=== PATIENT | male | born 1985 | race Caucasian/White ===

== ENCOUNTER 2021-08-13 15:06 | Emergency (ER) | payer OTHER, SELFPAY ==
[2021-08-13 15:30] VITALS: BP 176/98; RESP 18; TEMP 36.9; O2SAT 97; BMI 29.8
--- NOTE | 2021-08-13 15:43 | DI.RAD.S_ITS ---
PROCEDURE: XR CHEST 1V INDICATIONS: chest pain TECHNIQUE: One view of the chest was acquired. COMPARISON: None. FINDINGS: Surgical changes and devices: None. Lungs and pleura: Lungs are clear. No pleural effusions or pneumothorax. Mediastinum: Mediastinal contours appear normal. Heart size is normal. Bones and chest wall: No suspicious bony lesions. Overlying soft tissues appear unremarkable. IMPRESSION: No acute cardiopulmonary pathology. Dictated by: Martín Elizalde M.D. on 08/13/2021 at 16:21 Approved by: Martín Elizalde M.D. on 08/13/2021 at 16:21
[2021-08-13] MEDS: ASPIRIN 81 MG CHEW TAB 324 MG PO (15:46)
[2021-08-13 16:00] LABS: Add Manual Diff / Slide Review NO; Basophils Absolute Auto 100 /uL (0-100); Basophils Percent Auto 0.9 % (0-2); Eosinophils Absolute Auto 300 /uL (0-450); Eosinophils Percent Auto 5.3 % (2-4); Hematocrit 42.2 % (41-53); Hemoglobin 14.4 g/dL (13.5-17.5); Lymphocytes Absolute Auto 2100 /uL (1100-4500); Mean Corpuscular HGB Conc 34.1 % (30-36); Mean Corpuscular Hemoglobin 26.8 PG (26-34); Mean Corpuscular Volume 78.6 fL (80-100); Monocytes Absolute Auto 500 /uL (0-900); Monocytes Percent Auto 7.7 % (3-14); Neutrophils Absolute Auto 3400 /uL (1500-7000); Neutrophils Percent Auto 53.1 % (50-75); Platelet Count 274 X10^3/uL (150-400); Red Blood Cell Count 5.37 X10^6/uL (4.5-5.9); Red Cell Distribution Width 13.2 % (11.6-14.8); White Blood Cell Count 6.4 X10^3/uL (4.5-11.0)
[2021-08-13 16:03] LABS: INR 1.1 (0.9-1.3); Prothrombin Time 11.7 SECONDS (10.1-12.7)
[2021-08-13 16:06] LABS: Alanine Aminotransferase 74 IU/L (<50); Albumin 4.6 g/dL (3.5-5.0); Albumin Globulin Ratio 1.4 (1.0-2.8); Alkaline Phosphatase 73 U/L (38-126); Aspartate Aminotransferase 57 IU/L (17-59); Bilirubin Total 0.5 mg/dL (0.2-1.3); Blood Urea Nitrogen 13 mg/dL (9-20); Calcium 9.2 mg/dL (8.4-10.2); Carbon Dioxide 25 mmol/L (22-32); Chloride 106 mmol/L (98-107); Creatine Kinase 402 U/L (55-170); Estimated Glomerular Filt Rate > 60 mL/min (>60); Globulin 3.3 g/dL (1.7-4.1); Glucose 111 mg/dL (70-100); HEMOLYSIS < 15 (0-50); Lipase 140 U/L (23-300); PTT Partial Thromboplastin Tim 32 SECONDS (26.4-36.2); Potassium 3.7 mmol/L (3.4-5.1); Sodium 139 mmol/L (137-145); Total Protein 7.9 g/dL (6.3-8.2)
[2021-08-13 16:18] LABS: Troponin I < 0.012 ng/mL (0.01-0.034)
[2021-08-13 16:20] LABS: CKMB % Relative Index 0.5 % (1.5-5.0); Creatine Kinase MB 2.13 ng/mL (<2.37)
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
[2021-08-13] MEDS: PANTOPRAZOLE DR 20 MG TABLET PO (16:55)
[2021-08-13] MEDS: ACETAMINOPHEN 325 MG TABLET 650 MG PO (16:55)
[2021-08-13] MEDS: HYDROCODONE/ACET 5/325 TABLET 1 TAB PO (16:55)
[2021-08-13] MEDS: methocarbamoL 500 MG TABLET PO (16:55)
== END 2021-08-13 18:12 | disposition home or self-care (01) ==
PROVIDERS: Emergency Medicine; Emergency Provider Nurse Practitioner Critical Care Medicine
DX: R07.82 Intercostal pain (principal); M94.0 Chondrocostal junction syndrome [Tietze]
CPT/HCPCS: 36415; 71045; 80053; 82550; 82553; 83690; 83735; 84484; 85025; 85610; 85730; 93005; 93010; 99284

== ENCOUNTER 2021-10-05 18:44 | Emergency (ER) | payer OTHER, SELFPAY ==
[2021-10-05 18:48] VITALS: BP 183/92; PULSE 91; RESP 22; TEMP 36.9; O2SAT 98
--- NOTE | 2021-10-05 19:35 | ED.BACK ---
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 Patient was doing lifts, with his evaluating his 4, when he felt a pop in his lower back. He immediately dropped the weights, applied ice to the affected area and came to the emergency department. Patient is experienced at conducting lifts and only left manageable weights. He denies any loss of bowel or bladder, extremity numbness or tingling, etc. Patient has not taken anything for the pain. Patient is scheduled to deploy with the [employer] ([place]) in 3 weeks. Related Data Previous Rx's Medication Instructions Recorded hydrocodone 5 mg-acetaminophen 325 1 tab PO BID PRN pain #10 tabs 08/13/21 mg tablet methocarbamol 500 mg tablet 500 mg PO TID PRN muscle spasm #14 08/13/21 tabs cyclobenzaprine 10 mg tablet 10 mg PO TID PRN muscle spasm #14 10/05/21 tabs oxycodone-acetaminophen 7.5 mg-325 1 tab PO Q6H PRN pain #20 tabs 10/05/21 mg tablet Allergies Allergy/AdvReac Type Severity Reaction Status Date / Time No Known Drug Allergies Allergy Verified 08/13/21 15:46 Review of Systems <ALIDA Gill - Last Filed: 10/05/21 20:54> Review of Systems Narrative: Narrative: GENERAL: Denies chills, fatigue, fever, sweats. See HPI HEENT: Denies sinus pain, ear pain, sore throat, difficulty swallowing, dizziness. RESPIRATORY: Denies dyspnea, cough, wheezing, sputum. CARDIOVASCULAR: Denies chest pain, palpitations, edema. GASTROINTESTINAL: Denies nausea, vomiting, abdominal pain, diarrhea, constipation. : Denies dysuria, frequency, incontinence, hematuria, urinary retention, flank pain. MUSCULOSKELETAL: Endorses pain of left lower back. SKIN: Denies rash, skin lesions, or pruritis. NEUROLOGIC: Denies weakness, dizziness, headache, numbness, confusion. PSYCHIATRIC: No concerning psychosocial issues. Patient History <Devante BautistaALIDA - Last Filed: 10/05/21 20:54> alcohol intake frequency: 0-2 drinks per day Substance Use Type: does not use Exam <Devante BautistaALIDA - Last Filed: 10/05/21 20:54> Narrative Exam Narrative: Exam Narrative: GENERAL: This is a well-nourished, well-developed patient, in no acute distress HEAD: Atraumatic. Normocephalic. EYES: Pupils equal round and reactive. Extraocular motions intact. No scleral icterus, injection or drainage. ENT: Nose without bleeding, purulent drainage. Throat without erythema, tonsillar hypertrophy or exudate. Airway patent. NECK: Trachea midline. No JVD or lymphadenopathy. Nontender. CARDIOVASCULAR: Regular rate and rhythm without murmurs, peripheral pulses intact, cap refill <2 sec. RESPIRATORY: Breath sounds equal and clear bilaterally. No wheezes, rales, or rhonchi. No cough. No increased respiratory effort. No accessory muscle use. GASTROINTESTINAL: Abdomen soft, non-tender, nondistended without guarding or rebound. No suprapubic pain. EXTREMITIES: Normal range of motion of extremities, no clubbing or edema. Neurovascularly intact. NEURO: A&O x 3. SKIN: Warm, dry, no rashes or lesions noted. Initial Vital Signs Initial Vital Signs: Vital Signs Temperature 98.5 F 10/05/21 18:48 Pulse Rate 91 H 10/05/21 18:48 Respiratory Rate 22 10/05/21 18:48 Blood Pressure 183/92 H 10/05/21 18:48 Pulse Oximetry 98 10/05/21 18:48 Oxygen Delivery Method 10/05/21 18:48 Reviewed Back/Spine/Pelvis Other: BACK rough planer tender but free of any obvious external abnormalities. There is no asymmetry, swelling, bruising or wound. There is no paraspinal tenderness or CVA tenderness. SI joints nontender. No pain over spinous processes. No symptoms of cauda equina such as saddle anesthesia. Sensation is grossly intact. ROM is limited due to pain. <Devante Oakley DO - Last Filed: 10/05/21 21:11> Initial Vital Signs Initial Vital Signs: Vital Signs Temperature 98.5 F 10/05/21 18:48 Pulse Rate 91 H 10/05/21 18:48 Respiratory Rate 22 07/11/22 18:48 Blood Pressure 183/92 H 10/05/21 18:48 Pulse Oximetry 98 10/05/21 18:48 Oxygen Delivery Method 10/05/21 18:48 Course <ALIDA Gill - Last Filed: 10/05/21 20:54> Orders Ordered: ED Orders 10/05/21 19:47 XR lumbar spine 2-3V Stat Discontinued Medications Ketorolac Tromethamine (Ketorolac 30 Mg/Ml Vial) 30 mg IM NOW ONE Stop: 10/05/21 19:46 Last Admin: 10/05/21 19:54 Dose: 30 mg Documented By: DEBBIE Oxycodone/Acetaminophen (Oxycodone/Acetaminophen 5/325 Tablet) 1 tab PO NOW ONE Stop: 10/05/21 19:46 Last Admin: 10/05/21 19:54 Dose: 1 tab Documented By: JASMINK Vital Signs Vital signs: Vital Signs - 8 hr 10/05/21 18:48 10/05/21 21:04 Temperature 98.5 F Pulse Rate 91 H 89 Respiratory Rate 22 16 Blood Pressure 183/92 H 160/80 H Pulse Oximetry 98 99 Oxygen Delivery Method Room Air Room Air <Devante Oakley DO - Last Filed: 10/05/21 21:11> Orders Ordered: ED Orders 10/05/21 19:47 XR lumbar spine 2-3V Stat Discontinued Medications Ketorolac Tromethamine (Ketorolac 30 Mg/Ml Vial) 30 mg IM NOW ONE Stop: 10/05/21 19:46 Last Admin: 10/05/21 19:54 Dose: 30 mg Documented By: DEBBIE Oxycodone/Acetaminophen (Oxycodone/Acetaminophen 5/325 Tablet) 1 tab PO NOW ONE Stop: 10/05/21 19:46 Last Admin: 10/05/21 19:54 Dose: 1 tab Documented By: JASMINK Vital Signs Vital signs: Vital Signs - 8 hr 10/05/21 18:48 10/05/21 21:04 Temperature 98.5 F Pulse Rate 91 H 89 Respiratory Rate 22 16 Blood Pressure 183/92 H 160/80 H Pulse Oximetry 98 99 Oxygen Delivery Method Room Air Room Air MDM - Back Pain/Injury <ALIDA Gill - Last Filed: 10/05/21 20:54> Differential Diagnosis Differential diagnosis: Likely strain of lumbar region Imaging Data Extremity x-ray #1: Radiologist's Impression: [address] [address] XRay Report Signed Patient: Audi Mclean MR#: [id number] : 1985 Acct:[id number] Age/Sex: 36 / M Date of Service: 10/05/21 Loc: ED Accession Number: [id number] ?? Procedure: XR lumbar spine 2-3V Ordering Provider: Devante Bautista PROCEDURE:? XR LUMBAR SPINE 2-3V ? INDICATIONS:? back pain ? TECHNIQUE:? 3 views of the lumbar spine were acquired.? ? COMPARISON:? None. ? FINDINGS:? ? Bones:? 5 [id number] vertebrae are present.? There is minimal anterolisthesis at L5-S1 measuring approximately 0.2 cm mild facet arthropathy also demonstrated at L5-S1.? No vertebral body compression fractures.? No suspicious bony lesions.? ? Soft tissues:? Overlying bowel gas pattern is normal.? No suspicious soft tissue calcifications.? ? ? IMPRESSION:? ? 1. Mild facet arthropathy at L5-S1 with minimal retrolisthesis. ? ? Dictated by: Isaiah Mccallum M.D. on 10/05/2021 at 20:45 ? ? Approved by: Isaiah Mccallum M.D. on 10/05/2021 at 20:46 ? MDM Narrative Medical decision making narrative: 36-year-old male presents to the emergency department with right lower back pain secondary to a weight lifting incident earlier today. Consideration included that injury was traumatic, patient is not a IV drug user, no fever, neurovascular intact, no weakness, no signs of epidural abscess or saddle anesthesia. Toradol injection and single dose of Percocet provided prior to x-rays. Radiologist report reveals Mild facet arthropathy at L5-S1 with minimal retrolisthesis. Will discharge with recommendations for hot or cold compresses, prescription for pain medication and muscle relaxers. 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 Discussed return precautions and plan of care with patient, who was agreeable with course of action. Discharge Plan Departure Patient Disposition: Home Clinical Impression: Strain of lumbar region Instructions: DI for Back Spasm, DI for Back Strain or Sprain Activity Restrictions/Additional Instructions: *You have been diagnosed with a lumbar strain. The radiologist's report reveals Mild facet arthropathy at L5-S1 with minimal retrolisthesis. Please apply ice or heat to the affected area as needed for comfort. I am sending you a prescription for pain medication and a muscle relaxer to be used for comfort. If at any point you lose control of your bowel or bladder, lose sensation in your legs, or experience debilitating pain, please return to the emergency department. 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 *What to do: *Please continue to take your regular medications as directed. [x ] New medication prescriptions sent to your pharmacy: [facility] [ ] New medication written as a paper prescription [ ] No new medications given *Please follow up with your primary care provider in 2-3 days, call for an appointment. Let them know you were seen in the Emergency Department and that we ask that you be seen in follow up. We will electronically transmit a record of today's note if your PCP is in our system *If you do not have a primary care provider please contact the [facility] Resource line at [phone]. They will ask some questions about your medical history and help get you set up with a doctor in the community. ? Return to ER if you should have any new, worsening or concerning symptoms, such as worsening pain, severe headache, confusion, chest pain, difficulty breathing, fever greater than 101 F, shaking chills, persistent vomiting to the point that you cannot drink fluids, or other new or worsening symptoms. Prescriptions: New cyclobenzaprine 10 mg tablet 10 mg PO TID PRN (Reason: muscle spasm) Qty: 14 0RF oxycodone-acetaminophen 7.5-325 mg tablet 1 tab PO Q6H PRN (Reason: pain) Qty: 20 0RF No Action methocarbamol 500 mg tablet 500 mg PO TID PRN (Reason: muscle spasm) Qty: 14 0RF hydrocodone-acetaminophen 5-325 mg tablet 1 tab PO BID PRN (Reason: pain) Qty: 10 0RF Referrals: Miscellaneous,Doctor, MD [Primary Care Provider] - Visit Report Forms: Patient Portal/API <Devante Oakley, DO - Last Filed: 10/05/21 21:11> Cosign ED Attending Cosignature Attestation: Dr Oakley Co-Sign Statement: I was available for consultation during this patient's emergency department visit. This chart is signed by myself for administrative purposes only. I did not have direct contact with this patient during this visit. They were seen independently by the APC.
--- NOTE | 2021-10-05 19:47 | DI.RAD.S_ITS ---
PROCEDURE: XR LUMBAR SPINE 2-3V INDICATIONS: back pain TECHNIQUE: 3 views of the lumbar spine were acquired. COMPARISON: None. FINDINGS: Bones: 5 [id number] vertebrae are present. There is minimal anterolisthesis at L5-S1 measuring approximately 0.2 cm mild facet arthropathy also demonstrated at L5-S1. No vertebral body compression fractures. No suspicious bony lesions. Soft tissues: Overlying bowel gas pattern is normal. No suspicious soft tissue calcifications. IMPRESSION: 1. Mild facet arthropathy at L5-S1 with minimal retrolisthesis. Dictated by: Isaiah Mccallum M.D. on 10/05/2021 at 20:45 Approved by: Isaiah Mccallum M.D. on 10/05/2021 at 20:46
[2021-10-05] MEDS: KETOROLAC 30 MG/ML VIAL IM (19:54)
[2021-10-05] MEDS: OXYCODONE/ACETAMINOPHEN 5/325 TABLET 1 TAB PO (19:54)
[2021-10-05 21:04] VITALS: BP 160/80; PULSE 89; RESP 16; O2SAT 99
== END 2021-10-05 21:04 | disposition home or self-care (01) ==
PROVIDERS: Emergency Provider Registered Nurse
DX: S39.012A Strain of muscle, fascia and tendon of lower back, initial encounter (principal); X50.0XXA Overexertion from strenuous movement or load, initial encounter
CPT/HCPCS: 72100; 96372; 99283; J1885